=== PATIENT | female | born 1985 | race Caucasian/White ===

== ENCOUNTER 2019-01-11 08:30 | Day surgery (SDC) | payer MEDICAID ==
[~2019-01-11 08:30] MED LIST: ACETAMINOPHEN 1,000 MG/100 ML BTL IVPB ONE; FAMOTIDINE 20MG TABLET PO ONE; MECLIZINE 25 MG TABLET PO ONE; METOCLOPRAMIDE 10 MG TABLET PO ONE
[2019-01-11] MEDS ORDERED: ROCURONIUM BROMIDE 50MG/5ML VIAL IV ONE (08:31)
[2019-01-11] MEDS ORDERED: PROPOFOL 10 MG/ML VIAL IV ONE (08:31)
[2019-01-11] MEDS ORDERED: NEOSTIGMINE 1 MG/1 ML,10ML VIAL IV ONE (08:31)
[2019-01-11] MEDS ORDERED: SUCCINYLCHOLINE 20 MG/ML 10ML IVP ONE (08:31)
[2019-01-11] MEDS ORDERED: SEVOFLURANE 250 ML INH ONE (08:31)
[2019-01-11] MEDS ORDERED: KETOROLAC 30 MG/ML VIAL IVP ONE (08:31)
[2019-01-11] MEDS ORDERED: GLYCOPYRROLATE 0.2 MG/ML ML IV ONE (08:31)
[2019-01-11] MEDS ORDERED: MIDAZOLAM HCL 2MG/2ML VIAL IV ONE (08:31)
[2019-01-11] MEDS ORDERED: ONDANSETRON HCL IV 4 MG/2 ML VIAL IVP ONE ×2 (08:31→11:13)
[2019-01-11] MEDS ORDERED: FENTANYL PF 100MCG/2ML VIAL IV ONE (08:31)
[2019-01-11] MEDS ORDERED: LIDOCAINE 2% MDV (20MG/ML) 20ML VIAL IV ONE (08:31)
[2019-01-11 08:48] LABS: HEMATOCRIT 39.1 % (35.0-47.0); HEMOGLOBIN 11.9 gm/dl (11.6-16.0)
[2019-01-11] MEDS ORDERED: RINGERS SOLUTION,LACTATED 1,000 ML IV ONE ×3 (09:15→10:15)
[2019-01-11] MEDS ORDERED: BUPIVACAINE 0.25% W/EPI MPF 30ML VIAL SQ ONE (10:28)
[2019-01-11] MEDS ORDERED: HYDROMORPHONE HCL 2 MG/ML VIAL IVP ONE (10:52)
[2019-01-11] MEDS ORDERED: HYDROMORPHONE HCL 2 MG/ML VIAL IM ONE (11:22)
[2019-01-11] MEDS ORDERED: SCOPOLAMINE 1 PATCH TDSY TD ONE (11:40)
--- NOTE | 2019-01-12 08:20 | Operative Note ---
DATE OF SURGERY: 01/11/2019 SURGEON: Piter Bear DO PREOPERATIVE DIAGNOSIS: Cholelithiasis with chronic cholecystitis. POSTOPERATIVE DIAGNOSIS: Cholelithiasis with chronic cholecystitis. OPERATION: Laparoscopic cholecystectomy. INDICATION: The patient is a 31-year-old female who is having ongoing right subcostal postprandial pain. Imaging study did reveal cholelithiasis. She also had a thickened gallbladder wall. PROCEDURE: After, consent was signed and questions answered, she was taken to the operating room and placed in a supine position. General anesthesia was administered per the department of anesthesia. The patient's abdomen was prepped and draped in the usual sterile fashion. Due to the patient's morbid obesity, I did have to go in a supraumbilical location. At this point, this area was anesthetized with a total of 5 mL of 0.25% Sensorcaine with epinephrine. A 2 cm supraumbilical incision was made. This was carried down to the anterior rectus fascia. This was incised. Andrey clamps were placed on the fascial edges and brought up into the wound. Stay sutures of 0 Vicryl were placed. Posterior rectus sheath was identified and incised. The peritoneal cavity was entered bluntly. At this time, a 10 mm bariatric balloon Amanda port was then placed. Adequate pneumoperitoneum was established. The patient was rotated into steep reverse Trendelenburg with rotation to the left. Under direct visualization, additional 5 mm epigastric and two 5 mm right subcostal ports were placed. The patient had extensive fatty infiltration of the liver. The gallbladder was noted to be very thickened and inflamed. Using traumatic graspers, this was retracted in a cephalad and lateral direction opening up the angle of Calot. The hepatocystic triangle was thoroughly dissected out. There was no aberrant anatomy, no posterior ductal structures. One of the traumatic graspers did tear a slight hole in the gallbladder leaking some purulent bile. Nonetheless, we had an excellent critical view of safety. The distal half of the gallbladder was released from the liver plate. The cystic duct and cystic artery were clearly identified. Each one was doubly clipped and cut in a standard fashion. Gallbladder essentially peeled off the liver. This was placed in an EndoCatch bag and brought out through the umbilical port. The right upper quadrant was then irrigated thoroughly. No bleeding. No bile leaking. No bowel injury noted. The patient was then leveled out. The pneumoperitoneum was released. All ports were removed. The fascia was closed with 0 Vicryl in a [id number] fashion. The skin at all ports was closed with 4-0 Vicryl. The patient was taken to the recovery in stable condition. FINDINGS AT THE TIME OF SURGERY: Acute on chronic cholecystitis. MTDD
== END 2019-01-11 11:55 | disposition home or self-care (01) ==
LOC: SUR 08:30
PROVIDERS: ATTEND Surgery
DX: K80.10 Calculus of gallbladder with chronic cholecystitis without obstruction (principal)
CPT/HCPCS: 81025; 85014; 85018; J0330; J1885; J2405; J2710; J7120